=== PATIENT | female | born 1945 | race American Indian/Alaskan Native ===

== ENCOUNTER 2022-01-25 13:44 | Outpatient (CLI) | payer MEDICARE ==
--- NOTE | 2022-01-25 16:51 | Mammography Report ---
DEXA BONE DENSITY SCAN INDICATION / CLINICAL INFORMATION: Z78.0 POSTMENOPAUSAL STATE. 76 years Female COMPARISON: None available. LUMBAR SPINE, L1-L4: - Bone mineral density (BMD) = 1.009 g/cm2. - T-score = -0.3 - Change (%) since most recent prior (if available): None available. RIGHT HIP, NECK : - Bone mineral density (BMD) = 0.612 g/cm2. - T-score = -2.1 - Change (%) since most recent prior (if available): None available. LEFT HIP, : -Not performed. IMPRESSION: 1. WHO Classification: Osteopenia. Fracture Risk: Increased. 2. 10-Year Fracture Risk (FRAX) = Major Osteoporotic 5.9% / Hip: 1.5% FRAX generally not reported for patients with normal or osteoporotic BMD, in jzv-pmxuczq-dmicvad nicky ents younger than age 50, or in patients undergoing pharmacotherapy BMD Reporting Guidelines (ISCD, 2015) BMD Reporting in Postmenopausal Women and in Men Age 50 and Older - T-scores are preferred. - The WHO densitometric classification is applicable. BMD Reporting in Females Prior to Menopause and in Males Younger Than Age 50 - Z-scores, not T-scores, are preferred. This is particularly important in children. - A Z-score of -2.0 or lower is defined as below the expected range for age, and a Z-score above -2.0 is within the expected range for age. - Osteoporosis cannot be diagnosed in men under age 50 on the basis of BMD alone. - The WHO diagnostic criteria may be applied to women in the menopausal transition. http://www.iscd.org/official-positions/3687-dsmv-skxphybk-positions-adult/ Signer Name: Uziel Cintron MD Signed: 01/25/2022 4:46 PM Workstation Name: [id number]
== END 2022-01-25 13:45 | disposition home or self-care (01) ==
LOC: MAMMO 13:44
DX: Z12.31 Encounter for screening mammogram for malignant neoplasm of breast (principal); Z78.0 Asymptomatic menopausal state
CPT/HCPCS: 77067; 77080